=== PATIENT | male | born 2000 | race Hispanic/Latino ===

== ENCOUNTER 2020-01-24 15:01 | Outpatient (CLI) | payer MEDICAID ==
[2020-01-24 15:52] LABS: Alanine Aminotransferase 26 units/L (7-56); Albumin 4.2 g/dL (3.9-5); Blood Urea Nitrogen 8 mg/dL (9-20); Calcium 9.5 mg/dL (8.4-10.2); Chol/HDL Ratio 4.31 %; HDL Cholesterol 35 mg/dL (40-59); Hemolysis Index 6; LDL Cholesterol,Direct 98 mg/dL (50-130)
[2020-01-24 16:07] LABS: BUN/Creatinine Ratio 13
== END 2020-01-24 15:02 | disposition home or self-care (01) ==
LOC: LAB 15:01
PROVIDERS: ATTEND Pediatrics Pediatric Cardiology
DX: E78.5 Hyperlipidemia, unspecified (principal); E66.01 Morbid (severe) obesity due to excess calories
CPT/HCPCS: 36415; 80053; 80061

== ENCOUNTER 2020-06-06 14:32 | Outpatient (CLI) | payer MEDICAID ==
[2020-06-06 16:02] LABS: Alanine Aminotransferase 25 units/L (7-56); Albumin 4.3 g/dL (3.9-5); Blood Urea Nitrogen 7 mg/dL (9-20); Calcium 9.5 mg/dL (8.4-10.2); Chol/HDL Ratio 4.08 %; HDL Cholesterol 35 mg/dL (40-59); Hemolysis Index 5; LDL Cholesterol,Direct 88 mg/dL (50-130)
[2020-06-06 16:03] LABS: BUN/Creatinine Ratio 10
== END 2020-06-06 14:33 | disposition home or self-care (01) ==
LOC: LAB 14:32
PROVIDERS: ATTEND Pediatrics Pediatric Cardiology
DX: E78.5 Hyperlipidemia, unspecified (principal); E66.01 Morbid (severe) obesity due to excess calories
CPT/HCPCS: 36415; 80053; 80061; 83036; 83516; 84436; 84443; 85384; 85652; 86140